=== PATIENT | male | born 1955 | race Caucasian/White ===

== ENCOUNTER 2017-01-06 08:39 | Emergency (ER) | payer BC ==
[2017-01-06] MEDS ORDERED: ONDANSETRON 4 MG/2 ML VIAL IVP STA (09:27)
[2017-01-06] MEDS ORDERED: SODIUM CHLORIDE 0.9% 1,000 ML IV STA (09:27)
[2017-01-06] MEDS ORDERED: HYDROmorphone 1 MG/ML 1 ML SYRINGE IVP STA (09:27)
--- NOTE | 2017-01-06 09:40 | ED ---
General Adult HPI - General Chief complaint: Abdominal Pain Stated complaint: left side pain Time Seen by Provider: 01/06/17 09:06 Source: patient, RN notes reviewed Mode of arrival: ambulatory Limitations: no limitations - History of Present Illness Initial comments: Patient 61-year-old male who presents emergency room today with a chief complaint of left-sided flank pain that started approximately 2 weeks ago. Does admit to history of kidney stones states this does feel somewhat similar. Does admit that his noticed decreased urinary stream. Patient admits to increased pain in the left flank area that started last night. Currently rates an 8/10 area denies any other complaints or symptoms. Patient denies any recent fever, chills, shortness of breath, chest pain, numbness or tingling, dysuria or hematuria, constipation or diarrhea, headaches or visual changes, or any other complaints. - Related Data Home Medications Medication Instructions Recorded Confirmed Ibuprofen [Motrin] 600 mg PO TID PRN 01/06/17 01/06/17 Previous Rx's Medication Instructions Recorded Hydrocodone/Acetaminophen [[place] 1 each PO Q6HR PRN #20 tab 01/06/17 5-325] Ibuprofen [Motrin] 600 mg PO Q6HR PRN #40 day 01/06/17 Ondansetron Odt [Zofran ODT] 4 mg PO Q8HR PRN #20 tab 01/06/17 Allergies Allergy/AdvReac Type Severity Reaction Status Date / Time No Known Allergies Allergy Unverified 01/06/17 09:08 Review of Systems ROS Statement: Those systems with pertinent positive or pertinent negative responses have been documented in the HPI. ROS Other: All systems not noted in ROS Statement are negative. Past Medical History Additional Past Medical History / Comment(s): hemmorrhoids History of Any Multi-Drug Resistant Organisms: None Reported Past Surgical History: Adenoidectomy, Orthopedic Surgery, Tonsillectomy Past Psychological History: No Psychological Hx Reported Smoking Status: Never smoker Past Alcohol Use History: None Reported Past Drug Use History: None Reported General Exam - General Exam Comments Initial Comments: General: The patient is awake and alert, in no distress, and does not appear acutely ill. Eye: Pupils are equal, round and reactive to light, extra-ocular movements are intact. No nystagmus. There is normal conjunctiva bilaterally. No signs of icterus. Ears, nose, mouth and throat: There are moist mucous membranes and no oral lesions. Neck: The neck is supple, there is no tenderness or JVD. Cardiovascular: There is a regular rate and rhythm. No murmur, rub or gallop is appreciated. Respiratory: Lungs are clear to auscultation, respirations are non-labored, breath sounds are equal. No wheezes, stridor, rales, or rhonchi. Gastrointestinal: Soft, non-distended, non-tender abdomen without masses or organomegaly noted. There is no rebound or guarding present. No CVA tenderness. Bowel sounds are unremarkable. Musculoskeletal: Normal ROM, no tenderness. Strength 5/5. Sensation intact. Pulses equal bilaterally 2+. Neurological: A&O x 3. CN II-XII intact, There are no obvious motor or sensory deficits. Coordination appears grossly intact. Speech is normal. Skin: Skin is warm and dry and no rashes or lesions are noted. Psychiatric: Cooperative, appropriate mood & affect, normal judgment. Limitations: no limitations Course Vital Signs 01/06/17 01/06/17 01/06/17 08:49 09:45 11:00 Temperature 97.2 F L Pulse Rate 72 63 58 L Respiratory 20 18 18 Rate Blood Pressure 141/83 140/79 131/78 O2 Sat by Pulse 98 95 92 L Oximetry Medical Decision Making - Medical Decision Making Vision reexamined at this time shows no signs of distress. Resting comfortably in the stretcher. Patient's abdomen soft nontender. Labs been reviewed shows mildly elevated BUN/creatinine. Patient given a liter bolus here the emergency room. Mildly elevated amylase lipase. Patient's urinalysis no sign of infection. Patient's CAT scan reviewed does show 6 murmurs to the left mid ureter. Results were discussed with the patient. Patient is advised follow-up with urologist. He states he seen Dr. Rainey in the past.Case discussed in detail with attending physician Dr. Perry. Patient will be discharged home with nausea medication, pain medication. He does have Flomax at home that he is taking. He is advised return here to the emergency room symptoms increase worsen or for any other concerns. - Lab Data Result diagrams: 01/06/17 09:40 01/06/17 09:40 Lab Results 01/06/17 01/06/17 01/06/17 Range/Units 09:40 09:40 09:40 WBC 9.2 (3.8-10.6) k/uL RBC 4.89 (4.30-5.90) m/uL Hgb 14.7 (13.0-17.5) gm/dL Hct 42.9 (39.0-53.0) % MCV 87.9 (80.0-100.0) fL MCH 30.0 (25.0-35.0) pg MCHC 34.2 (31.0-37.0) g/dL RDW 12.7 (11.5-15.5) % Plt Count 279 (150-450) k/uL Neutrophils % 77 % Lymphocytes % 14 % Monocytes % 5 % Eosinophils % 1 % Basophils % 0 % Neutrophils # 7.1 (1.3-7.7) k/uL Lymphocytes # 1.3 (1.0-4.8) k/uL Monocytes # 0.5 (0-1.0) k/uL Eosinophils # 0.1 (0-0.7) k/uL Basophils # 0.0 (0-0.2) k/uL Sodium 136 L (137-145) mmol/L Potassium 4.4 (3.5-5.1) mmol/L Chloride 104 (98-107) mmol/L Carbon Dioxide 26 (22-30) mmol/L Anion Gap 6 mmol/L BUN 23 H (9-20) mg/dL Creatinine 1.70 H (0.66-1.25) mg/dL Est GFR (MDRD) Af Amer 50 (>60 ml/min/1.73 sqM) Est GFR (MDRD) Non-Af 41 (>60 ml/min/1.73 sqM) Glucose 111 H (74-99) mg/dL Calcium 9.7 (8.4-10.2) mg/dL Total Bilirubin 1.5 H (0.2-1.3) mg/dL AST 25 (17-59) U/L ALT 48 (21-72) U/L Alkaline Phosphatase 134 H (38-126) U/L Total Protein 7.5 (6.3-8.2) g/dL Albumin 4.1 (3.5-5.0) g/dL Amylase 140 H (30-110) U/L Lipase 462 H (23-300) U/L Urine Color Yellow Urine Appearance Clear (Clear) Urine pH 6.0 (5.0-8.0) Ur Specific [place] 1.020 (1.001-1.035) Urine Protein Trace H (Negative) Urine Glucose (UA) Negative (Negative) Urine Ketones Negative (Negative) Urine Blood Trace H (Negative) Urine Nitrite Negative (Negative) Urine Bilirubin Negative (Negative) Urine Urobilinogen <2.0 (<2.0) mg/dL Ur Leukocyte Esterase Negative (Negative) Urine RBC 6 H (0-5) /hpf Urine WBC 1 (0-5) /hpf Ur Squamous Epith Cells <1 (0-4) /hpf Urine Sperm Rare (None) /hpf Disposition Clinical Impression: Kidney stone on left side Disposition: HOME SELF-CARE Condition: Good Instructions: Kidney Stones (ED) Additional Instructions: Please use medication as discussed. Please follow-up with urologist over the next 1-2 days. Please return to emergency room if the symptoms increase or worsen or for any other concerns. Prescriptions: Hydrocodone/Acetaminophen [[place] 5-325] 1 each PO Q6HR PRN #20 tab PRN Reason: Pain Ibuprofen [Motrin] 600 mg PO Q6HR PRN #40 day PRN Reason: Pain Ondansetron Odt [Zofran ODT] 4 mg PO Q8HR PRN #20 tab PRN Reason: Nausea Referrals: Varghese Neal MD [Primary Care Provider] - 1-2 days Shawn Rainey MD [STAFF PHYSICIAN] - 1-2 days Time of Disposition: 11:24
[2017-01-06 10:06] LABS: Basophils % (A) 0 %; CH 30.3; CHCM 34.6; Eosinophils # (A) 0.1 k/uL (0-0.7); Eosinophils % (A) 1 %; HCT 42.9 % (39.0-53.0); HDW 2.59; HGB 14.7 gm/dL (13.0-17.5); Luc # (Auto) 0.26; Luc % (Auto) 3; Lymphocytes # (A) 1.3 k/uL (1.0-4.8); Lymphocytes % (A) 14 %; MCHC 34.2 g/dL (31.0-37.0); MCV 87.9 fL (80.0-100.0); Mean Platelet Volume 7.7; Monocytes # (A) 0.5 k/uL (0-1.0); Monocytes % (A) 5 %; Neutrophils # (A) 7.1 k/uL (1.3-7.7); Neutrophils % (A) 77 %; RBC 4.89 m/uL (4.30-5.90); RDW 12.7 % (11.5-15.5); WBC 9.2 k/uL (3.8-10.6); WBC (Perox) 9.48
--- NOTE | 2017-01-06 10:11 | XR ---
Abdomen HISTORY: Abdominal pain Frontal view of the abdomen on 2 images correlated to prior exam 02 January 2015 There is a calcification in the left paraspinal location at the level of L3 transverse process measur ing approximately 8 mm in size. Lung bases are clear. No pneumoperitoneum or bowel obstruction. Focus of increased density over the left sacrum is stable. There is some sacralization of L5. IMPRESSION: Findings may represent left ureteral calculus.
[2017-01-06 10:15] LABS: Appearance,Urine Clear (Clear); Bilirubin,Urine Negative (Negative); Glucose,Urine (UA) Negative (Negative); Ketones,Urine Negative (Negative); Leukocyte Esterase,Urine Negative (Negative); Nitrite,Urine Negative (Negative); Particle Count 1137; Protein,Urine Trace (Negative); RBC,Urine 6 /hpf (0-5); Sperm,Urine Rare /hpf; Squamous Epithelial Cell,Urine <1 /hpf (0-4); UA Billing (MACRO vs. MICRO) MICRO; Urobilinogen,Urine <2.0 mg/dL (<2.0); WBC,Urine 1 /hpf (0-5)
[2017-01-06 10:22] LABS: Calcium 9.7 mg/dL (8.4-10.2); Potassium 4.4 mmol/L (3.5-5.1); Total Bilirubin 1.5 mg/dL (0.2-1.3); Total Protein 7.5 g/dL (6.3-8.2)
--- NOTE | 2017-01-06 10:57 | CT ---
EXAMINATION TYPE: CT abdomen pelvis wo con DATE OF EXAM: 01/06/2017 10:33 AM COMPARISON: NONE HISTORY: Patient having left flank pain with history of kidney stones CT DLP: 606.0 mGycm Automated exposure control for dose reduction was used. TECHNIQUE: Helical acquisition of images from the lung bases through the pelvis. FINDINGS: LUNG BASES: Minimal dependent atelectatic changes, no pleural or pericardial effusion AORTA: No significant abnormality is appreciated. LIVER/GB: No significant abnormality is appreciated. PANCREAS: No significant abnormality is seen. SPLEEN: No significant abnormality is seen. ADRENALS: No significant abnormality is seen. KIDNEYS: Left kidney shows hydronephrosis. There is a proximal left ureteral calculus as noted on gissell in film measuring approximately 6 mm in diameter. Right kidney is unremarkable. Punctate nonobstructi ve calculus is present in the mid pole of the left kidney. REPRODUCTIVE ORGANS: No significant abnormality is seen. URINARY BLADDER: No significant abnormality is seen. BOWEL: Diverticular appears calcified sigmoid colon, dense diverticulum also present in the descendi ng colon, difficult to exclude some wall thickening. The colon is not distended. The appendix is norm al. FREE AIR: No Free Air is visible. ASCITES: None visible. PELVIC ADENOPATHY: None visualized. RETROPERITONEAL ADENOPATHY: No Retroperitoneal Adenopathy visible. OSSEOUS STRUCTURES: No significant abnormality is seen. IMPRESSION: MID URETERAL CALCULUS ON THE LEFT WITH HYDRONEPHROSIS. NONCONTRAST EXAM. DIVERTICULOSIS.
[2017-01-06 11:39] VITALS: BP 145/77; PULSE 59; RESP 16; TEMP 98.3
== END 2017-01-06 11:39 | disposition home or self-care (01) ==
LOC: EC 08:39
DX: N20.0 Calculus of kidney (principal)
CPT/HCPCS: 36415; 80053; 82150; 83690; 85025; 81001; 87086; 74000; 74176; 99284; 96374; 96375; 96361; J2405; J1170

== ENCOUNTER → 2024-02-11 | Outpatient (CLI) | payer MEDICARE, OTHER ==
--- NOTE | 2024-02-12 16:57 | PE ---
EXAMINATION TYPE: PET CT fusion skull to thigh DATE OF EXAM: 02/11/2024 COMPARISON: CT abdomen pelvis 01/06/2017 Prior PET/CT: None at this location HISTORY: Lymphoma TECHNIQUE: Following the intravenous administration of 11.68 mCi of F-18 FDG, whole body images are performed from the skull base to the midthigh. Images are reviewed on the computer in the coronal, a xial, and sagittal planes. Reconstructed rotating images are created on independent workstation and reviewed on the computer. A localization and attenuation correction CT is performed in conjunction with the PET scan. DLP: 636.71 mGycm SCAN: Subsequent Blood glucose: 91 mg/dL Average Mediastinum SUV: 2.42 Average Liver SUV: 3.13 FINDINGS: NECK: No suspicious uptake THORAX: No suspicious uptake ABDOMEN: No suspicious uptake PELVIS: No suspicious uptake OSSEOUS STRUCTURES: No suspicious uptake LOCALIZATION CT: Nonobstructing inferior pole left renal stone is noted. COMPARISON: No significant interval change. Previous hydronephrosis is not evident IMPRESSION: 1. No suspicious uptake to suggest residual or recurrent lymphoma
== END | disposition home or self-care (01) ==
LOC: RADPETMAIN 09:24
PROVIDERS: ATTEND Internal Medicine Hematology & Oncology
DX: C85.90 Non-Hodgkin lymphoma, unspecified, unspecified site (principal)
CPT/HCPCS: 78815; A9552

== ENCOUNTER → 2024-08-18 | Outpatient (CLI) | payer MEDICARE, OTHER ==
--- NOTE | 2024-08-19 16:11 | PE ---
EXAMINATION TYPE: PET CT fusion skull to thigh DATE OF EXAM: 08/18/2024 COMPARISON: CT abdomen pelvis 01/06/2017. No more recent pertinent CTs available. Prior PET/CT: 02/11/2024 HISTORY: Diffuse large B-cell lymphoma TECHNIQUE: Following the intravenous administration of 12.75 mCi of F-18 FDG, whole body images are performed from the skull base to the midthigh. Images are reviewed on the computer in the coronal, a xial, and sagittal planes. Reconstructed rotating images are created on independent workstation and reviewed on the computer. A localization and attenuation correction CT is performed in conjunction with the PET scan. DLP: 735.83 mGycm SCAN: Subsequent Blood glucose: 99 mg/dL Average Mediastinum SUV: 2.2 Average Liver SUV: 2.66 FINDINGS: NECK: No abnormal uptake THORAX: No abnormal uptake ABDOMEN: No abnormal uptake PELVIS: No abnormal uptake OSSEOUS STRUCTURES: No abnormal uptake LOCALIZATION CT: No suspicious adenopathy. No suspicious acute changes. Note is made of a left renal cyst. Inferior pole nonobstructing renal stone is present. COMPARISON: No significant interval changes IMPRESSION: 1. No suspicious changes to suggest recurrent or residual lymphoma. [facility], , 08/19/2024 4:09 PM
== END | disposition home or self-care (01) ==
LOC: RADPETMAIN 10:13
PROVIDERS: ATTEND Internal Medicine Hematology & Oncology
DX: C83.36 Diffuse large B-cell lymphoma, intrapelvic lymph nodes (principal); E80.4 Gilbert syndrome; Z71.3 Dietary counseling and surveillance; N28.1 Cyst of kidney, acquired; N20.0 Calculus of kidney
CPT/HCPCS: 78815; A9552

== ENCOUNTER → 2025-02-16 | Outpatient (CLI) | payer MEDICARE, OTHER ==
--- NOTE | 2025-02-21 15:17 | PE ---
EXAMINATION TYPE: PET CT fusion skull to thigh DATE OF EXAM: 02/16/2025 COMPARISON: No recent pertinent CT Prior PET/CT: 08/18/2024 CLINICAL INDICATION: Male, 69 years old with history of C83.36 LYMPHOMA, TECHNIQUE: Following the intravenous administration of 10.28 mCi of F-18 FDG, whole body images are performed PET CT fusion skull to thigh. Images are reviewed on the computer in the coronal, axial, a nd sagittal planes. Reconstructed rotating images are created on independent workstation and reviewe d on the computer. A localization and attenuation correction CT is performed in conjunction with e PET scan. DLP: 825 mGycm SCAN: Subsequent Blood glucose: 92 mg/dL Average Mediastinum SUV: 2.19 Average Liver SUV: 2.61 FINDINGS: NECK: No abnormal uptake THORAX: No abnormal uptake ABDOMEN: No abnormal uptake PELVIS: There is diminished day uptake adjacent to the iliac vessels in the left iliac canal region. Very vague uptake may be adjacent iliac vessels on the left side of the previous left groin uptake. C urrent SUV 3.19, Previous SUV 4.2 OSSEOUS STRUCTURES: No abnormal uptake LOCALIZATION CT: No suspicious acute changes. There is a nonobstructing inferior pole left renal ston e COMPARISON: No significant interval change. IMPRESSION: 1. No suspicious areas of abnormal uptake to suggest metastatic lymphoma. 2. Very minimal uptake, diminishing, in the left iliac canal region [facility], , 02/21/2025 3:15 PM
== END | disposition home or self-care (01) ==
LOC: RADPETMAIN 09:24
PROVIDERS: ATTEND Internal Medicine Hematology & Oncology
DX: C83.36 Diffuse large B-cell lymphoma, intrapelvic lymph nodes (principal)
CPT/HCPCS: 78815; A9552